=== PATIENT | female | born 1980 | race Caucasian/White ===

== ENCOUNTER 2020-04-30 17:03 | Observation (INO) | payer OTHER ==
[2020-04-30] MEDS ORDERED: SODIUM CHLORIDE 0.9% 1,000 ML IV STA (17:40)
[2020-04-30] MEDS ORDERED: HYDROmorphone 0.5 MG/0.5 ML SYRINGE IVP STA (17:40)
--- NOTE | 2020-04-30 17:50 | ED ---
General Adult HPI - General Source: patient, RN notes reviewed Mode of arrival: ambulatory Limitations: no limitations <Ang Meier - Last Filed: 04/30/20 19:35> <Jass Banks - Last Filed: 04/30/20 19:54> - General Chief complaint: Abdominal Pain Stated complaint: abd pain Time Seen by Provider: 04/30/20 17:27 - History of Present Illness Initial comments: 39-year-old female with a past medical history of GERD presents to the emergency department for a chief complaint of abdominal pain. Patient reports that she has had generalized abdominal pain for 2 weeks. States that she had diarrhea for about a week and a half that has since resolved. Patient continues to have nausea vomiting and last vomited last night. Patient was seen at [facility] and admitted for 2 days. Patient left because they were "not very nice." Patient saw her doctor Dr. Hickman today because her abdominal pain w as worsening and he sent her to this emergency room. She denies fevers or chills. Denies melena or hematochezia. Denies hematemesis.Patient has no other complaints at this time including shortness of breath, chest pain, nausea or vomiting, headache, or visual changes. (Ang Meier) - Related Data Allergies Allergy/AdvReac Type Severity Reaction Status Date / Time amoxicillin Allergy Rash/Hives Verified 04/30/20 17:22 Review of Systems ROS Other: All systems not noted in ROS Statement are negative. <Ang Meier - Last Filed: 04/30/20 19:35> ROS Other: All systems not noted in ROS Statement are negative. <Jass Banks - Last Filed: 04/30/20 19:54> ROS Statement: Those systems with pertinent positive or pertinent negative responses have been documented in the HPI. Past Medical History Past Medical History: GERD/Reflux History of Any Multi-Drug Resistant Organisms: None Reported Past Surgical History: Adenoidectomy, Hysterectomy, Tonsillectomy Past Psychological History: Depression, PTSD Smoking Status: Current every day smoker Past Alcohol Use History: Occasional Past Drug Use History: None Reported <Ang Meier - Last Filed: 04/30/20 19:35> General Exam Limitations: no limitations General appearance: alert, in no apparent distress Head exam: Present: atraumatic, normocephalic, normal inspection Eye exam: Present: normal appearance, PERRL, EOMI. Absent: scleral icterus, conjunctival injection, periorbital swelling ENT exam: Present: normal exam, mucous membranes moist Neck exam: Present: normal inspection, full ROM. Absent: tenderness, meningismus, lymphadenopathy Respiratory exam: Present: normal lung sounds bilaterally. Absent: respiratory distress, wheezes, rales, rhonchi, stridor Cardiovascular Exam: Present: regular rate, normal rhythm, normal heart sounds. Absent: systolic murmur, diastolic murmur, rubs, gallop, clicks GI/Abdominal exam: Present: soft, tenderness (generalized tenderness), normal bowel sounds. Absent: distended, guarding, rebound, rigid Neurological exam: Present: alert <Ang Meier - Last Filed: 04/30/20 19:35> Course <Jass Banks - Last Filed: 04/30/20 19:54> Vital Signs 04/30/20 17:22 Temperature 98.4 F Pulse Rate 93 Respiratory 19 Rate Blood Pressure 123/90 O2 Sat by Pulse 97 Oximetry - Reevaluation(s) Reevaluation #1: 04/30/20 19:52 PA supervision: I proceeded [id number] evaluation the patient she did present with complaints of approximately 28 weeks of abdominal pain. She was seen earlier in her course at [facility]. She did end up leaving there and was a follow-up with Dr. Ngo on the 26th of this month. She did state that the pain persists and did see Dr. Hickman today. He did send the patient to the emergency department I did discuss the case with him initially. Patient was evaluated lab work is essentially within normal limits CAT scan shows evidence of bilateral adrenal masses which are likely thought to be benign. Patient still persistently having pain generalized no definitive rebound. I did discuss case with Dr. Nassar. Patient be admitted with surgical consultation. (Jass Banks) Medical Decision Making - Lab Data Result diagrams: 04/30/20 18:10 04/30/20 18:10 <Ang Meier - Last Filed: 04/30/20 19:35> - Lab Data Result diagrams: 04/30/20 18:10 04/30/20 18:10 <Jass Banks - Last Filed: 04/30/20 19:54> - Medical Decision Making Vitals are stable. CBC CMP unremarkable. Amylase and lipase are normal. Urinalysis is unremarkable. History of hysterectomy. CT abdomen and pelvis shows bilateral adrenal masses likely benign in nature, otherwise no acute process. Patient was given several different pain medications and continues to have generalized abdominal pain. Stating she cannot sleep at night because of this pain. It has been ongoing for 2 weeks. At this time patient will be admitted for intractable pain. Will consult GI. (Ang Meier) - Lab Data Lab Results 04/30/20 04/30/20 04/30/20 Range/Units 18:10 18:10 18:10 WBC 7.9 (3.8-10.6) k/uL RBC 3.90 (3.80-5.40) m/uL Hgb 12.3 (11.4-16.0) gm/dL Hct 37.7 (34.0-46.0) % MCV 96.9 (80.0-100.0) fL MCH 31.6 (25.0-35.0) pg MCHC 32.6 (31.0-37.0) g/dL RDW 12.8 (11.5-15.5) % Plt Count 321 (150-450) k/uL Neutrophils % 63 % Lymphocytes % 29 % Monocytes % 4 % Eosinophils % 2 % Basophils % 1 % Neutrophils # 5.0 (1.3-7.7) k/uL Lymphocytes # 2.3 (1.0-4.8) k/uL Monocytes # 0.3 (0-1.0) k/uL Eosinophils # 0.1 (0-0.7) k/uL Basophils # 0.1 (0-0.2) k/uL Sodium 135 L (137-145) mmol/L Potassium 3.9 (3.5-5.1) mmol/L Chloride 107 (98-107) mmol/L Carbon Dioxide 22 (22-30) mmol/L Anion Gap 6 mmol/L BUN 8 (7-17) mg/dL Creatinine 0.64 (0.52-1.04) mg/dL Est GFR (CKD-EPI)AfAm >90 (>60 ml/min/1.73 sqM) Est GFR (CKD-EPI)NonAf >90 (>60 ml/min/1.73 sqM) Glucose 85 (74-99) mg/dL Plasma Lactic Acid Marcellus (0.7-2.0) mmol/L Calcium 9.1 (8.4-10.2) mg/dL Total Bilirubin 0.5 (0.2-1.3) mg/dL AST 25 (14-36) U/L ALT 17 (4-34) U/L Alkaline Phosphatase 61 (38-126) U/L Total Protein 6.5 (6.3-8.2) g/dL Albumin 3.8 (3.5-5.0) g/dL Amylase 31 (30-110) U/L Lipase 50 (23-300) U/L Urine Color Yellow Urine Appearance Clear (Clear) Urine pH 6.0 (5.0-8.0) Ur Specific [place] 1.005 (1.001-1.035) Urine Protein Negative (Negative) Urine Glucose (UA) Negative (Negative) Urine Ketones Negative (Negative) Urine Blood Negative (Negative) Urine Nitrite Negative (Negative) Urine Bilirubin Negative (Negative) Urine Urobilinogen <2.0 (<2.0) mg/dL Ur Leukocyte Esterase Negative (Negative) 04/30/20 Range/Units 18:10 WBC (3.8-10.6) k/uL RBC (3.80-5.40) m/uL Hgb (11.4-16.0) gm/dL Hct (34.0-46.0) % MCV (80.0-100.0) fL MCH (25.0-35.0) pg MCHC (31.0-37.0) g/dL RDW (11.5-15.5) % Plt Count (150-450) k/uL Neutrophils % % Lymphocytes % % Monocytes % % Eosinophils % % Basophils % % Neutrophils # (1.3-7.7) k/uL Lymphocytes # (1.0-4.8) k/uL Monocytes # (0-1.0) k/uL Eosinophils # (0-0.7) k/uL Basophils # (0-0.2) k/uL Sodium (137-145) mmol/L Potassium (3.5-5.1) mmol/L Chloride (98-107) mmol/L Carbon Dioxide (22-30) mmol/L Anion Gap mmol/L BUN (7-17) mg/dL Creatinine (0.52-1.04) mg/dL Est GFR (CKD-EPI)AfAm (>60 ml/min/1.73 sqM) Est GFR (CKD-EPI)NonAf (>60 ml/min/1.73 sqM) Glucose (74-99) mg/dL Plasma Lactic Acid Marcell[place] 0.7 (0.7-2.0) mmol/L Calcium (8.4-10.2) mg/dL Total Bilirubin (0.2-1.3) mg/dL AST (14-36) U/L ALT (4-34) U/L Alkaline Phosphatase (38-126) U/L Total Protein (6.3-8.2) g/dL Albumin (3.5-5.0) g/dL Amylase (30-110) U/L Lipase (23-300) U/L Urine Color Urine Appearance (Clear) Urine pH (5.0-8.0) Ur Specific [place] (1.001-1.035) Urine Protein (Negative) Urine Glucose (UA) (Negative) Urine Ketones (Negative) Urine Blood (Negative) Urine Nitrite (Negative) Urine Bilirubin (Negative) Urine Urobilinogen (<2.0) mg/dL Ur Leukocyte Esterase (Negative) Disposition Is patient prescribed a controlled substance at d/c from ED?: No Time of Disposition: 19:36 <Ang Meier - Last Filed: 04/30/20 19:35> <Jass Banks - Last Filed: 04/30/20 19:54> Clinical Impression: Intractable abdominal pain Disposition: ADMITTED IP TO THIS HOSP Condition: Fair Referrals: Chance Hickman MD [Primary Care Provider] - 1-2 days
[2020-04-30] MEDS ORDERED: ONDANSETRON 4 MG/2 ML VIAL IVP STA (18:14)
[2020-04-30 18:24] LABS: Basophils # (A) 0.1 k/uL (0-0.2); Basophils % (A) 1 %; Eosinophils # (A) 0.1 k/uL (0-0.7); Eosinophils % (A) 2 %; HCT 37.7 % (34.0-46.0); HGB 12.3 gm/dL (11.4-16.0); Lymphocytes # (A) 2.3 k/uL (1.0-4.8); Lymphocytes % (A) 29 %; MCH 31.6 pg (25.0-35.0); MCHC 32.6 g/dL (31.0-37.0); MCV 96.9 fL (80.0-100.0); Mean Platelet Volume 7.4; Monocytes # (A) 0.3 k/uL (0-1.0); Monocytes % (A) 4 %; Neutrophils % (A) 63 %; Platelet Count 321 k/uL (150-450); RDW 12.8 % (11.5-15.5); WBC 7.9 k/uL (3.8-10.6)
[2020-04-30 18:25] LABS: Appearance,Urine Clear (Clear); Bilirubin,Urine Negative (Negative); Blood,Urine Negative (Negative); Color,Urine Yellow; Glucose,Urine (UA) Negative (Negative); Ketones,Urine Negative (Negative); Leukocyte Esterase,Urine Negative (Negative); Nitrite,Urine Negative (Negative); Protein,Urine Negative (Negative); Specific Gravity,Urine 1.005 (1.001-1.035); Urobilinogen,Urine <2.0 mg/dL (<2.0)
[2020-04-30 18:32] LABS: ALT 17 U/L (4-34); AST 25 U/L (14-36); African American GFR (CKD) >90 (>60 ml/min/1.73 sqM); Albumin 3.8 g/dL (3.5-5.0); Alkaline Phosphatase 61 U/L (38-126); Amylase 31 U/L (30-110); Anion Gap 6 mmol/L; Blood Urea Nitrogen 8 mg/dL (7-17); Calcium 9.1 mg/dL (8.4-10.2); Carbon Dioxide 22 mmol/L (22-30); Chloride 107 mmol/L (98-107); Glucose 85 mg/dL (74-99); Non-African American GFR(CKD) >90 (>60 ml/min/1.73 sqM); Potassium 3.9 mmol/L (3.5-5.1); Sodium 135 mmol/L (137-145); Total Bilirubin 0.5 mg/dL (0.2-1.3); Total Protein 6.5 g/dL (6.3-8.2)
--- NOTE | 2020-04-30 18:56 | CT ---
EXAMINATION TYPE: CT abdomen pelvis w con DATE OF EXAM: 04/30/2020 COMPARISON: None HISTORY: Generalized abdominal pain, nausea and vomiting x2 weeks. CT DLP: 1324.4 mGycm Automated exposure control for dose reduction was used. CONTRAST: Performed with IV Contrast, patient injected with 100ml mL of Isovue 300. Lung bases are clear. There is no pleural effusion. Heart size is normal. There is no pericardial eff usion. Liver gallbladder spleen stomach pancreas appear normal. Bile ducts are not dilated. There is bilateral low density adrenal masses that measure 2.8 cm. This is suggestive of benign disea se. Kidneys show satisfactory contrast opacification. There is no hydronephrosis. There is 1.5 cm cor tical cyst lower pole right kidney. Delayed images show normal renal excretion. Ureters are not dilat ed. There is no retroperitoneal adenopathy. Bladder distends smoothly. There is no inguinal hernia. T here is hysterectomy. There is 3.4 cm cyst on the left ovary. There is no free fluid in the pelvis. T here is no evidence of solid pelvic mass. Appendix is medial and appears normal. There is no mesenteric edema. There is no ascites or free air. There is no sign of bowel obstruction. The lumbar vertebra have normal alignment. There is small pos terior disc herniations at L4-5 and L5-S1. There is no compression fracture. Disc spaces are fairly n ormal. The bony pelvis appears intact. IMPRESSION: Bilateral low density adrenal masses suggestive of benign disease. Otherwise negative CT scan abdomen and pelvis.
[2020-04-30] MEDS ORDERED: KETOROLAC 15 MG/ML 1 ML VIAL IVP STA (19:07)
[2020-04-30] MEDS ORDERED: MAG HYDROX/AL HYDROX/SIMETH 30 ML CUP PO PRN (19:37)
[2020-04-30] MEDS ORDERED: NALOXONE 0.4 MG/ML 1 ML VIAL IV PRN (19:37)
[2020-04-30] MEDS: HYDROmorphone 0.5 MG/0.5 ML SYRINGE IVP PRN (21:33)
[2020-04-30] MEDS: SODIUM CHLORIDE 0.9% 1,000 ML IV SCH (22:14)
[2020-04-30] MEDS: PANTOPRAZOLE 40 MG/10 ML VIAL IV SCH (22:14)
[2020-05-01] MEDS: HYDROmorphone 0.5 MG/0.5 ML SYRINGE IVP PRN ×7 (00:36→21:39)
[2020-05-01] MEDS: ONDANSETRON 4 MG/2 ML VIAL IVP PRN ×2 (04:18→14:55)
[2020-05-01] MEDS ORDERED: TEMAZEPAM 15 MG CAP PO PRN (05:55)
[2020-05-01] MEDS: SODIUM CHLORIDE 0.9% 1,000 ML IV SCH ×2 (06:23→10:17)
[2020-05-01] MEDS: PANTOPRAZOLE 40 MG/10 ML VIAL IV SCH ×2 (08:06→21:42)
[2020-05-01] MEDS: DICYCLOMINE 10 MG CAP PO SCH ×3 (08:56→21:41)
[2020-05-01] MEDS: metroNIDAZOLE-NS PMX 500 MG in SALINE 1 100ML.BAG IVPB SCH ×2 (08:56→14:56)
--- NOTE | 2020-05-01 11:35 | P.HPIM ---
History of Present Illness H&P Date: 05/01/20 Chief Complaint: Abdominal pain HISTORY OF PRESENT ILLNESS This is a 39-year-old female patient of Dr. Hickman with past medical history of gastroesophageal reflux disease, depression and PTSD, tobacco use and dependence. Patient complains of abdominal pain in the lower quadrants that has been going on for 2 weeks. Pain started after she was at a cookout and eating a cheeseburger which she has started eating and noticed that the meat seem to be raw. Last week she had a temperature of 102.2 for 2 days. She also had some diarrhea which has subsequently resolved. She also complains of nausea and vomiting and has not had anything to it for the past 3-4 days. She was seen and admitted at [facility] about one week ago and was placed on Flagyl and Levaquin but she was not happy with her care there and signed out AMA. Patient states that she was seen by Dr. Ngo and had an appointment set up for May 09. The patient has had a hysterectomy for endometriosis 2 years ago, no other abdominal surgeries. Patient now presents to [facility] emergency center with the above complaints. She was afebrile, heart rate 61, blood pressure 139/79, pulse ox 97% on room air. CBC was unremarkable. Sodium 135 and otherwise CMP unremarkable. Urinalysis negative. CAT scan of the abdomen and pelvis with contrast revealed bilateral low-density adrenal masses suggestive of benign disease. Otherwise negative computed tomography scan. Patient placed on the observation unit and consults placed with GI and general surgery. REVIEW OF SYSTEMS Constitutional: No fever, no chills, no night sweats. No weight change. No weakness, fatigue or lethargy. No daytime sleepiness. EENT: No headache. No blurred vision or double vision, no loss of vision. No loss of Hearing, no ringing in the ears, no dizziness. No nasal drainage or congestion. No epistaxis. No sore throat. Lungs: No shortness of breath, cough, no sputum production. No wheezing. Cardiovascular: No chest pain, no lower extremity edema. No palpitations. No paroxysmal nocturnal dyspnea. No orthopnea. No lightheadedness or dizziness. No syncopal episodes. Abdominal: Reports abdominal pain. Reports nausea, Reportsvomiting. No diarrhea. No constipation. No bloody or tarry stools. Reports loss of appe tite. Genitourinary: No dysuria, increased frequency, urgency. No urinary retention. Musculoskeletal: No myalgias. No muscle weakness, no gait dysfunction, no frequent falls. No back pain. No neck pain. Integumentary: No wounds, no lesions. No rash or pruritus. No unusual bruising. No change in hair or nails. Neurologic: No aphasia. No facial droop. No change in mentation. No head injury. No headache. No paralysis. No paresthesia. Psychiatric: No depression. No anxiety. No mood swings. Endocrine: No abnormal blood sugars. No weight change. No excessive sweating or thirst. No cold intolerance. SOCIAL HISTORY Patient is a smoker of 5 cigarettes per day since she was 14 years of age. She drinks alcohol occasionally. She denies any marijuana, street drug use. She does not have a CPAP or nebulizer at home. She works at [email or web address]. FAMILY HISTORY Mother is alive at age 63 with history of hypertension. Father is alive but she does not know him. Patient has 2 brothers with no major medical problems. She does not have any biological sisters. She has one daughter 18 years of age with no major medical problems. PHYSICAL EXAMINATION Gen: This is a 39-year-old female. She is resting in bed and appears to be comfortable and in no acute distress. HEENT: Head is atraumatic, normocephalic. Pupils equal, round. Sclerae is anicteric. Oral mucous members are moist. NECK: Supple. No JVD. No lymphadenopathy. No thyromegaly. LUNGS: Clear to auscultation. No wheezes or rhonchi. No intercostal retractions. HEART: Regular rate and rhythm. No murmur. ABDOMEN: Soft. Bowel sounds are present. No masses. Bilateral lower quadrant tenderness. EXTREMITIES: No pedal edema. No calf tenderness. Dorsalis pedis +2 bilaterally. NEUROLOGICAL: Patient is awake, alert and oriented x3. Cranial nerves 2 through 12 are grossly intact. ASSESSMENT AND PLAN 1. Abdominal pain with negative CAT scan possibly related to bacterial colitis. Patient will be placed on ceftriaxone and Flagyl. Consult with general surgery and GI. 2. Ongoing nausea and vomiting. Consult GI for EGD. 3. Gastroesophageal reflux disease. Continue Protonix 40 mg IV daily. We'll plan to increase to 40 mg twice daily at home. 4. Tobacco use and dependence. 5. Depression, PTSD. Patient is on Zoloft 100 mg at bedtime, Seroquel 200 mg at bedtime and Restoril 50 mg at bedtime. Patient placed on the observation unit. Discharge plan: home Impression and plan of care have been directed as dictated by the signing physician. Jes Ha nurse practitioner acting as scribe for signing physician. Past Medical History Past Medical History: GERD/Reflux History of Any Multi-Drug Resistant Organisms: None Reported Past Surgical History: Adenoidectomy, Hysterectomy, Tonsillectomy Past Anesthesia/Blood Transfusion Reactions: No Reported Reaction Past Psychological History: Anxiety, Depression, PTSD Smoking Status: Current every day smoker Past Alcohol Use History: Occasional Past Drug Use History: None Reported Additional Drug Use History / Comment(s): patient reports taking a marijuana gummy the other day to try and help with the nausea which did not work. - Past Family History Father Family Medical History: No Reported History Mother Family Medical History: No Reported History Medications and Allergies Home Medications Medication Instructions Recorded Confirmed Type Pantoprazole Sodium [Protonix] 40 mg PO HS 04/30/20 04/30/20 History Pyridoxine HCl (Vitamin B6) 100 mg PO HS 04/30/20 04/30/20 History [Vitamin B-6] QUEtiapine FUMARATE [SEROquel] 200 mg PO HS 04/30/20 04/30/20 History Sertraline HCl [Zoloft] 100 mg PO HS 04/30/20 04/30/20 History Temazepam [Restoril] 15 mg PO HS PRN 04/30/20 04/30/20 History Allergies Allergy/AdvReac Type Severity Reaction Status Date / Time amoxicillin Allergy Rash/Hives Verified 04/30/20 17:22 Physical Exam Vitals: Vital Signs Temp Pulse Pulse Resp BP BP Pulse Ox 05/01/20 03:00 98.1 F 54 L 16 107/59 100 04/30/20 21:15 98 F 66 17 127/76 100 04/30/20 19:39 61 18 139/79 97 04/30/20 17:22 98.4 F 93 19 123/90 97 Intake and Output 04/30/20 05/01/20 05/01/20 22:59 06:59 14:59 Intake Total 800 Balance 800 Intake: Intake, IV Titration 800 Amount Sodium Chloride 0.9% 1, 800 000 ml @ 120 mls/hr IV . Q8H20M [facility] Rx#:[id number] Other: # Voids 1 1 Weight 99.337 kg Results CBC & Chem 7: 04/30/20 18:10 04/30/20 18:10 Labs: Abnormal Lab Results - Last 24 Hours (Table) 04/30/20 Range/Units 18:10 Sodium 135 L (137-145) mmol/L Thrombosis Risk Factor Assmnt - Choose All That Apply Any of the Below Risk Factors Present?: Yes Each Factor Represents 1 point: Obesity (BMI >25) Other Risk Factors: No Other congenital or acquired thrombophilia - If yes, enter type in comment: No Thrombosis Risk Factor Assessment Total Risk Factor Score: 1 Thrombosis Risk Factor Assessment Level: Low Risk
--- NOTE | 2020-05-01 11:57 | P.GSCN ---
History of Present Illness Consult date: 05/01/20 History of present illness: CHIEF COMPLAINT: Abdominal pain with nausea and vomiting HISTORY OF PRESENT ILLNESS: This is a 39-year-old female with a known past medical history of GERD, hysterectomy and nicotine dependence. She presented to the emergency room with complaints of abdominal pain for the past 2 weeks. I she reports that she does have pain all over the abdomen. She's been having stabbing sharp pains in the lower abdomen. She had diarrhea about a week ago that has now resolved. And since then she's been doing with nausea and vomiting. She has not eaten for about 2 days. She was at [facility] last week and reports that she was omitted there for about 2 days in the left because "they were not very nice". Patient reports that she was supposed to have scopes done with Dr. Ngo. She was discharged with Levaquin and Flagyl for possible colitis but did not have any improvement in her abdominal pain. Her last bowel movement was 4 days ago. She denies any fever or chills. Denies any melena or hematochezia. Denies any hematemesis. We've been consulted in regards patient's abdominal pain. PAST MEDICAL HISTORY: See list. PAST SURGICAL HISTORY: See list. MEDICATIONS: See list. ALLERGIES: See list. SOCIAL HISTORY: No illicit drug use. REVIEW OF SYSTEMS: CONSTITUTIONAL: Denies fever or chills. HEENT: Denies blurred vision, vision changes, or eye pain. Denies hemoptysis CARDIOVASCULAR: Denies chest pain or pressure. RESPIRATORY: No shortness of breath. GASTROINTESTINAL: See HPI for pertinent findings HEMATOLOGIC: Denies bleeding disorders. GENITOURINARY: Denies any blood in urine or increased urinary frequency. SKIN: Denies pruitis. Denies rash. PHYSICAL EXAM: VITAL SIGNS: Reviewed GENERAL: Well-developed in no acute distress. HEENT: No sclera icterus. Extraocular movements grossly intact. Moist buccal mucosa. Head is atraumatic, normocephalic. No nasal drainage. ABDOMEN: Soft. Diffuse tenderness mostly in the lower quadrants and epigastric area. Nondistended NEUROLOGIC: Alert and oriented. Cranial nerves II through XII grossly intact. LABORATORY DATA: WBC 7.9 hemoglobin 12.3 LFTs are all within normal limits. Lipase normal. IMAGING: Computed tomography scan abdomen and pelvis with contrast radiology reporting bilateral low-density adrenal masses suggestive of benign disease. Otherwise negative CT ASSESSMENT: 1. Abdominal pain possibly secondary to a gastroenteritis 2. nausea and vomiting PLAN: -Continue with antibiotics -Continue with IV fluids -Continue IV pain medications as needed -Keep patient nothing by mouth until seen by GI service -We'll await further recommendations per GI service -No surgical intervention needed Thank you for this consultation. We'll continue to follow along with you. Physician Bleach Chlorinator note has been reviewed by physician. Signing provider agrees with the documented findings, assessment, and plan of care. Past Medical History Past Medical History: GERD/Reflux History of Any Multi-Drug Resistant Organisms: None Reported Past Surgical History: Adenoidectomy, Hysterectomy, Tonsillectomy Past Anesthesia/Blood Transfusion Reactions: No Reported Reaction Past Psychological History: Anxiety, Depression, PTSD Smoking Status: Current every day smoker Past Alcohol Use History: Occasional Past Drug Use History: None Reported Additional Drug Use History / Comment(s): patient reports taking a marijuana gummy the other day to try and help with the nausea which did not work. - Past Family History Father Family Medical History: No Reported History Mother Family Medical History: No Reported History Medications and Allergies Home Medications Medication Instructions Recorded Confirmed Type Pantoprazole Sodium [Protonix] 40 mg PO HS 04/30/20 04/30/20 History Pyridoxine HCl (Vitamin B6) 100 mg PO HS 04/30/20 04/30/20 History [Vitamin B-6] QUEtiapine FUMARATE [SEROquel] 200 mg PO HS 04/30/20 04/30/20 History Sertraline HCl [Zoloft] 100 mg PO HS 04/30/20 04/30/20 History Temazepam [Restoril] 15 mg PO HS PRN 04/30/20 04/30/20 History Allergies Allergy/AdvReac Type Severity Reaction Status Date / Time amoxicillin Allergy Rash/Hives Verified 04/30/20 17:22 Surgical - Exam Vital Signs Temp Pulse Resp BP Pulse Ox 98.4 F 93 19 123/90 97 04/30/20 17:22 04/30/20 17:22 04/30/20 17:22 04/30/20 17:22 04/30/20 17:22 Results - Labs 04/30/20 18:10 04/30/20 18:10 Abnormal Lab Results - Last 24 Hours (Table) 04/30/20 Range/Units 18:10 Sodium 135 L (137-145) mmol/L Diabetes panel 04/30/20 Range/Units 18:10 Sodium 135 L (137-145) mmol/L Potassium 3.9 (3.5-5.1) mmol/L Chloride 107 (98-107) mmol/L Carbon Dioxide 22 (22-30) mmol/L BUN 8 (7-17) mg/dL Creatinine 0.64 (0.52-1.04) mg/dL Glucose 85 (74-99) mg/dL Calcium 9.1 (8.4-10.2) mg/dL AST 25 (14-36) U/L ALT 17 (4-34) U/L Alkaline Phosphatase 61 (38-126) U/L Total Protein 6.5 (6.3-8.2) g/dL Albumin 3.8 (3.5-5.0) g/dL Calcium panel 04/30/20 Range/Units 18:10 Calcium 9.1 (8.4-10.2) mg/dL Albumin 3.8 (3.5-5.0) g/dL Pituitary panel 04/30/20 Range/Units 18:10 Sodium 135 L (137-145) mmol/L Potassium 3.9 (3.5-5.1) mmol/L Chloride 107 (98-107) mmol/L Carbon Dioxide 22 (22-30) mmol/L BUN 8 (7-17) mg/dL Creatinine 0.64 (0.52-1.04) mg/dL Glucose 85 (74-99) mg/dL Calcium 9.1 (8.4-10.2) mg/dL Adrenal panel 04/30/20 Range/Units 18:10 Sodium 135 L (137-145) mmol/L Potassium 3.9 (3.5-5.1) mmol/L Chloride 107 (98-107) mmol/L Carbon Dioxide 22 (22-30) mmol/L BUN 8 (7-17) mg/dL Creatinine 0.64 (0.52-1.04) mg/dL Glucose 85 (74-99) mg/dL Calcium 9.1 (8.4-10.2) mg/dL Total Bilirubin 0.5 (0.2-1.3) mg/dL AST 25 (14-36) U/L ALT 17 (4-34) U/L Alkaline Phosphatase 61 (38-126) U/L Total Protein 6.5 (6.3-8.2) g/dL Albumin 3.8 (3.5-5.0) g/dL
[2020-05-01] MEDS ORDERED: PYRIDOXINE 50 MG TAB PO SCH (21:00)
[2020-05-01] MEDS ORDERED: SERTRALINE 100 MG TAB PO SCH (21:00)
[2020-05-01] MEDS ORDERED: QUEtiapine 200 MG TAB PO SCH (21:00)
[2020-05-01] MEDS ORDERED: LACTATED RINGERS 1,000 ML IV SCH (22:00)
[2020-05-02] MEDS: metroNIDAZOLE-NS PMX 500 MG in SALINE 1 100ML.BAG IVPB SCH ×3 (00:26→15:46)
[2020-05-02] MEDS: ONDANSETRON 4 MG/2 ML VIAL IVP PRN ×2 (00:35→10:21)
--- NOTE | 2020-05-02 01:39 | CONS ---
CONSULTATION DATE OF DICTATION: 05/01/2020 REASON FOR CONSULTATION: Epigastric pain for the last 2 weeks duration. HISTORY OF PRESENT ILLNESS: The patient is a 39-year-old pleasant white female who was admitted to the hospital complaining of epigastric pain for the last 2 weeks duration. Initially the pain was in the epigastric area subsequently became more periumbilical and generalized, associated with some nausea and vomiting. She was admitted to [facility] a week ago for 2 days, was treated symptomatically and was discharged home. Initially had some diarrhea but subsequently is having some constipation. She denies any prior history of peptic ulcer disease or recent NSAID use. No history of gastroesophageal reflux disease. She did have a CT of the abdomen and pelvis done in the emergency room that did show small adrenal masses bilaterally; otherwise, it was unremarkable. PAST MEDICAL HISTORY: Significant for anxiety, depression and gastroesophageal reflux disease. MEDICATIONS: Medications at home include Protonix, Seroquel, quetiapine, Zoloft, Restoril and vitamin B6. ALLERGIES: AMOXICILLIN. SOCIAL HISTORY: Chronic smoker 5 cigarettes a day since she was 14 years old. Occasionally drinks alcohol. FAMILY HISTORY: Mother hypertension. Father no medical problems. REVIEW OF SYSTEMS: CARDIOPULMONARY: No chest pain. No shortness of breath. GENITOURINARY: No dysuria or hematuria. MUSCULOSKELETAL: Unremarkable. SKIN: Unremarkable. ENDOCRINE: Unremarkable. PSYCHIATRIC: Unremarkable. NEUROLOGY: Unremarkable. ENT/VISION: Unremarkable. CONSTITUTIONAL: No recent weight loss. No fever, chills, night sweats. HEMATOLOGY: Unremarkable. ENDOCRINE: Unremarkable. PHYSICAL EXAMINATION: She appears comfortable. No apparent distress. Vital signs are stable. Blood pressure is 133/86, pulse rate 62 per minute and afebrile. HEENT: Examination unremarkable. Conjunctivae pink. Sclerae anicteric. Oral cavity, no lesions. NECK: No JVD or lymph node enlargement. CHEST: Clear to auscultation. HEART: Regular rate and rhythm. ABDOMEN: Soft. There was very minimal tenderness in the epigastric area. Rest of the abdomen was benign. Bowel sounds are positive. No organomegaly. EXTREMITIES: No pedal edema. SKIN: No rashes. NEURO: She is alert and oriented x3. No focal deficits. LABS: Labs done at the time of admission to the hospital: WBC 7.9, hemoglobin 12.3, platelets normal. Basic metabolic panel is within normal limits. AST, ALT, T-bilirubin, alkaline phosphatase are normal. Amylase and lipase are normal. IMPRESSION: 1. This is a patient who presented to the hospital with epigastric and upper abdominal pain for the last 2 weeks duration associated with some nausea, vomiting. Was admitted to [facility] 2 weeks ago for a couple of days and was treated symptomatically with no help in the symptoms. Denies any recent NSAID use. She does have history of gastroesophageal reflux disease and on Protonix 40 mg daily. No prior history of peptic ulcer disease. Recent CT scan of the abdomen was unremarkable other than small bilateral adrenal masses. 2. History of anxiety, depression. 3. Bilateral adrenal masses. RECOMMENDATION: 1. Continue with Protonix 40 mg daily. 2. Start on clear liquid diet. 3. Proceed with an upper endoscopy tomorrow. 4. I discussed with her risks, benefits, and complications of the procedure and she is agreeable to it. Thank you for this consultation. MMROMULOL / IJN: [id number] /
[2020-05-02] MEDS: SODIUM CHLORIDE 0.9% 1,000 ML IV SCH ×3 (02:57→10:24)
[2020-05-02 06:16] LABS: ALT 13 U/L (4-34); AST 25 U/L (14-36); African American GFR (CKD) >90 (>60 ml/min/1.73 sqM); Albumin 2.7 g/dL (3.5-5.0); Alkaline Phosphatase 44 U/L (38-126); Anion Gap 2 mmol/L; Blood Urea Nitrogen 7 mg/dL (7-17); Calcium 8.1 mg/dL (8.4-10.2); Carbon Dioxide 21 mmol/L (22-30); Chloride 112 mmol/L (98-107); Glucose 92 mg/dL (74-99); Non-African American GFR(CKD) >90 (>60 ml/min/1.73 sqM); Potassium 4.7 mmol/L (3.5-5.1); Sodium 135 mmol/L (137-145); Total Bilirubin 0.3 mg/dL (0.2-1.3); Total Protein 5.2 g/dL (6.3-8.2)
[2020-05-02] MEDS: DICYCLOMINE 10 MG CAP PO SCH ×2 (07:35→15:37)
[2020-05-02] MEDS: PANTOPRAZOLE 40 MG/10 ML VIAL IV SCH (07:36)
[2020-05-02 08:07] VITALS: TEMP 97.7
[2020-05-02] MEDS: HYDROmorphone 0.5 MG/0.5 ML SYRINGE IVP PRN ×2 (10:21→14:05)
--- NOTE | 2020-05-02 12:12 | P.PN ---
Subjective Progress Note Date: 05/02/20 CHIEF COMPLAINT: Abdominal pain with nausea and vomiting HISTORY OF PRESENT ILLNESS: Patient had 2 episodes of vomiting. She is complaining of epigastric abdominal pain and some discomfort in lower abdomen. She is scheduled for EGD today with Dr. Ngo. She is afebrile. PHYSICAL EXAM: VITAL SIGNS: Reviewed. GENERAL: Well-developed in no acute distress. HEENT: No sclera icterus. Extraocular movements grossly intact. Moist buccal mucosa. Head is atraumatic, normocephalic. ABDOMEN: Soft. Nondistended. NEUROLOGIC: Alert and oriented. Cranial nerves II through XII grossly intact. ASSESSMENT: 1. Abdominal pain possibly secondary to a gastroenteritis 2. nausea and vomiting PLAN: -Continue with antibiotics -Continue with IV fluids -Patient scheduled for EGD with Dr. 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 Signing provider agrees with the documented findings, assessment, and plan of care. Objective - Vital Signs Vital signs: Vital Signs Temp 97.7 F 05/02/20 07:42 Pulse 60 05/02/20 07:42 Resp 12 05/02/20 07:42 BP 106/50 05/02/20 07:42 Pulse Ox 97 05/02/20 07:42 Intake & Output 05/01/20 05/02/20 05/02/20 18:59 06:59 18:59 Other: Voiding Method Toilet Toilet # Voids 2 1 2 - Labs CBC & Chem 7: 04/30/20 18:10 05/02/20 05:19 Labs: Abnormal Lab Results - Last 24 Hours (Table) 05/02/20 Range/Units 05:19 Sodium 135 L (137-145) mmol/L Chloride 112 H (98-107) mmol/L Carbon Dioxide 21 L (22-30) mmol/L Calcium 8.1 L (8.4-10.2) mg/dL Total Protein 5.2 L (6.3-8.2) g/dL Albumin 2.7 L (3.5-5.0) g/dL Microbiology - Last 24 Hours (Table) 04/30/20 18:10 Blood Culture - Preliminary Blood No Growth after 24 hours
[2020-05-02] MEDS ORDERED: PROPOFOL 10 MG/ML 20 ML VIAL IV ONE (13:26)
[2020-05-02] MEDS ORDERED: IV FLUID CONTINUATION 1,000 ML IV ONE (13:27)
--- NOTE | 2020-05-02 13:55 | P.PCN ---
Date of Procedure: 05/02/20 Procedure(s) Performed: BRIEF HISTORY: Patient is a 39-year-old, pleasant, female scheduled for an upper endoscopy as a part of evaluation of severe epigastric pain for the last 2 weeks' duration.. PROCEDURE PERFORMED: Esophagogastroduodenoscopy with biopsy. PREOPERATIVE DIAGNOSIS: Severe epigastric pain of 2 weeks' duration. IV sedation per anesthesia. PROCEDURE: After informed consent was obtained, the patient was brought into the endoscopy unit. IV sedation was administered by Anesthesia under continuous monitoring. Initially the Olympus GIF-140 video endoscope was inserted into the mouth. Esophagus intubated without any difficulty. It was gradually advanced into the stomach and duodenum and carefully examined. The bulb had mild duodenitis and the second part of the duodenum appeared normal. The scope at this time was withdrawn to the stomach, adequately insufflated with air, and upon careful examination, mucosa of the antrum, had gastritis and biopsies were done from this area. The body, cardia and the fundus appeared normal. The scope was then withdrawn into the esophagus. The GE junction was located at 39 cm from the incisors. The esophagus appeared normal. There were no erosions or ulcerations seen , biopsies were done from the distal esophagus and the patient tolerated the procedure well. IMPRESSION: 1. Mild antral gastritis and duodenitis. 2. No evidence of esophagitis or peptic. RECOMMENDATIONS: The findings of this examination were discussed with the patient as well as a family. She will continue with Protonix 40 mg twice daily. Advance diet as tolerated. Await biopsy results..
[2020-05-02 14:10] VITALS: BP 140/75; PULSE 65; RESP 14
--- NOTE | 2020-05-02 14:13 | P.DS ---
Providers Date of admission: 04/30/20 19:52 Expected date of discharge: 05/02/20 Attending physician: Nick Nassar Consults: 04/30/20 19:52 Consult Physician Routine Consulting Provider: Aubrey León Consult Reason/Comments: intractable abdominal pain Do you want consulting provider notified?: Yes 05/01/20 08:32 Consult Physician Routine Consulting Provider: Mariah Ngo Consult Reason/Comments: egd?? already estabished w her Do you want consulting provider notified?: Yes Primary care physician: [facility] Course: HISTORY OF PRESENT ILLNESS This is a 39-year-old female patient of Dr. Hickman with past medical history of gastroesophageal reflux disease, depression and PTSD, tobacco use and dependence. Patient complains of abdominal pain in the lower quadrants that has been going on for 2 weeks. Pain started after she was at a cookout and eating a cheeseburger which she has started eating and noticed that the meat seem to be raw. Last week she had a temperature of 102.2 for 2 days. She also had some diarrhea which has subsequently resolved. She also complains of nausea and vomiting and has not had anything to it for the past 3-4 days. She was seen and admitted at [facility] about one week ago and was placed on Flagyl and Levaquin but she was not happy with her care there and signed out AM A. Patient states that she was seen by Dr. Ngo and had an appointment set up for May 09. The patient has had a hysterectomy for endometriosis 2 years ago, no other abdominal surgeries. Patient now presents to [facility] emergency center with the above complaints. She was afebrile, heart rate 61, blood pressure 139/79, pulse ox 97% on room air. CBC was unremarkable. Sodium 135 and otherwise CMP unremarkable. Urinalysis negative. CAT scan of the abdomen and pelvis with contrast revealed bilateral low-density adrenal masses suggestive of benign disease. Otherwise negative computed tomography scan. Patient placed on the observation unit and consults placed with GI and general surgery. Patient underwent EGD that found mild antral gastritis and duodenitis. No ev idence of esophagitis or peptic ulcer disease. Advised to Protonix 40 mg twice daily and advance diet as tolerated. Biopsy results to follow. Patient states that she continues to have pain but a little bit better today. She has not had a bowel movement to obtain stool specimen. She has been afebrile, heart rate 60, blood pressure 106/50, pulse ox 97% on room air. Repeat blood work reveals sodium 135, potassium 4.7, chloride 112, CO2 21, BUN 7, creatinine 0.66. Liver function tests normal. Patient will be discharged home today in stable condition. ASSESSMENT AND PLAN 1. Abdominal pain possibly related to bacterial ileitis/colitis. 2. Ongoing nausea and vomiting secondary to gastritis 3. Gastroesophageal reflux disease. 4. Tobacco use and dependence. 5. Depression, PTSD. Discharge plan: home Impression and plan of care have been directed as dictated by the signing physician. Jes Ha nurse practitioner acting as scribe for signing physic apoorva. Patient Condition at Discharge: Good Plan - Discharge Summary Discharge Rx Participant: Yes New Discharge Prescriptions: New Cefuroxime Axetil [Ceftin] 500 mg PO BID 10 Days #20 tab metroNIDAZOLE [Flagyl] 500 mg PO TID #30 tab Ondansetron HCl [Zofran] 4 mg PO Q8H PRN #20 tab PRN Reason: Nausea And Vomiting Continue Temazepam [Restoril] 15 mg PO HS PRN PRN Reason: Insomnia Sertraline HCl [Zoloft] 100 mg PO HS QUEtiapine FUMARATE [SEROquel] 200 mg PO HS Pyridoxine HCl (Vitamin B6) [Vitamin B-6] 100 mg PO HS Changed Pantoprazole Sodium [Protonix] 40 mg PO BID #60 tab Discharge Medication List Pyridoxine HCl (Vitamin B6) [Vitamin B-6] 100 mg PO HS 04/30/20 [History] QUEtiapine FUMARATE [SEROquel] 200 mg PO HS 04/30/20 [History] Sertraline HCl [Zoloft] 100 mg PO HS 04/30/20 [History] Temazepam [Restoril] 15 mg PO HS PRN 04/30/20 [History] Cefuroxime Axetil [Ceftin] 500 mg PO BID 10 Days #20 tab 05/02/20 [Rx] Ondansetron HCl [Zofran] 4 mg PO Q8H PRN #20 tab 05/02/20 [Rx] Pantoprazole Sodium [Protonix] 40 mg PO BID #60 tab 05/02/20 [Rx] metroNIDAZOLE [Flagyl] 500 mg PO TID #30 tab 05/02/20 [Rx] Follow up Appointment(s)/Referral(s): Chance Hickman MD [Primary Care Provider] - 1 Week Mariah Ngo MD [STAFF PHYSICIAN] - 1 Week Discharge Disposition: HOME SELF-CARE
== END 2020-05-02 16:23 | disposition home or self-care (01) ==
LOC: EC 17:03 → 1SOBS 19:52
PROVIDERS: ADMIT Internal Medicine Geriatric Medicine; ATTEND Internal Medicine Geriatric Medicine
DX: K29.50 Unspecified chronic gastritis without bleeding (principal); K29.80 Duodenitis without bleeding; K22.8 Other specified diseases of esophagus; K21.9 Gastro-esophageal reflux disease without esophagitis; R10.32 Left lower quadrant pain; R10.31 Right lower quadrant pain; E27.8 Other specified disorders of adrenal gland; F32.9 Major depressive disorder, single episode, unspecified; F41.9 Anxiety disorder, unspecified; F43.10 Post-traumatic stress disorder, unspecified; F17.210 Nicotine dependence, cigarettes, uncomplicated; E66.9 Obesity, unspecified; Z68.31 Body mass index [BMI] 31.0-31.9, adult; Z88.0 Allergy status to penicillin; Z90.89 Acquired absence of other organs; Z90.710 Acquired absence of both cervix and uterus; Z87.42 Personal history of other diseases of the female genital tract; Z79.899 Other long term (current) drug therapy; Z82.49 Family history of ischemic heart disease and other diseases of the circulatory system
CPT/HCPCS: 96361 ×3; 96365; 96375 ×3; 96376 ×3; 99285; 36415; 88305; 80053 ×2; 82150; 83605; 83690; 83735; 85025; 81003; 87040; 74177; 43239; G0378 ×3; J2405 ×3; J0696 ×2; J1885; J2704; C9113 ×3; J1170 ×3; Q9967

== ENCOUNTER → 2020-10-31 | Outpatient (CLI) | payer OTHER ==
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
== END | disposition home or self-care (01) ==
LOC: RADXRMAIN 12:11
PROVIDERS: ATTEND Physician Assistant
DX: M25.572 Pain in left ankle and joints of left foot (principal); S93.402D Sprain of unspecified ligament of left ankle, subsequent encounter; S92.002D Unspecified fracture of left calcaneus, subsequent encounter for fracture with routine healing; Z18.10 Retained metal fragments, unspecified; S50.352A Superficial foreign body of left elbow, initial encounter

== ENCOUNTER → 2020-10-31 | Outpatient (CLI) | payer OTHER | END | disposition home or self-care (01) | LOC: LABWHC1 12:01 | PROVIDERS: ATTEND Physician Assistant | DX: M25.572 Pain in left ankle and joints of left foot (principal); S93.402D Sprain of unspecified ligament of left ankle, subsequent encounter; S92.002D Unspecified fracture of left calcaneus, subsequent encounter for fracture with routine healing | CPT/HCPCS: 36415; 82306 ==

== ENCOUNTER → 2020-11-23 | Outpatient (CLI) | payer OTHER ==
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
== END | disposition home or self-care (01) ==
LOC: RADCTMAIN 07:33
PROVIDERS: ATTEND Orthopaedic Surgery
DX: M89.8X7 Other specified disorders of bone, ankle and foot (principal)